=== PATIENT | female | born 1950 | race African-American/Black ===

== ENCOUNTER 2017-11-18 05:06 | Day surgery (SDC) | payer OTHER ==
[2017-11-16 12:38] VITALS: BMI 32.1
[~2017-11-18 05:06] MED LIST: TOBRAMYCIN/DEXAMETHASONE OPHTH. OINTMENT 1 TUBE TP ONE
[2017-11-18 06:20] VITALS: TEMP 98
[2017-11-18] MEDS: MOXIFLOXACIN HCL 0.5% OPHTHALMIC 3 ML BOTTLE ONE ×3 (06:45→07:14)
[2017-11-18] MEDS: DICLOFENAC SODIUM 0.1% OPHTHALMIC 2.5ML BOTTLE ONE ×3 (06:45→07:14)
[2017-11-18] MEDS: TROPICAMIDE 1% OPHTH SOLN 15 ML BOTTLE ONE ×3 (06:45→07:15)
[2017-11-18] MEDS: PHENYLEPHRINE 2.5% OPHTH SOLN 15 ML BOTTLE ONE ×3 (06:45→07:14)
[2017-11-18] MEDS ORDERED: CHONDROITIN SU A/HYALUR SOD 1 KIT ONE (07:11)
[2017-11-18] MEDS ORDERED: ACETAMINOPHEN 325 MG TABLET (FP) PO PRN (07:11)
[2017-11-18] MEDS ORDERED: LIDOCAINE HCL 2% JELLY (5 ML/TUBE) ONE (07:14)
[2017-11-18] MEDS ORDERED: PHENYLEPHRINE 2.5% OPHTH SOLN 15 ML BOTTLE OP SCH (07:15)
[2017-11-18] MEDS ORDERED: DICLOFENAC SODIUM 0.1% OPHTHALMIC 2.5ML BOTTLE OP SCH (07:15)
[2017-11-18] MEDS ORDERED: TROPICAMIDE 1% OPHTH SOLN 15 ML BOTTLE OP SCH (07:15)
[2017-11-18] MEDS ORDERED: MOXIFLOXACIN HCL 0.5% OPHTHALMIC 3 ML BOTTLE OS SCH (07:15)
[2017-11-18] MEDS ORDERED: TOBRAMYCIN/DEXAMETHASONE OPHTH. OINTMENT 1 TUBE ONE (07:16)
[2017-11-18] MEDS ORDERED: POVIDONE-IODINE 5% OPHTHALMIC PREP 30 ML SOLUTION ONE (07:17)
[2017-11-18] MEDS ORDERED: BSS (NA/CA/MG/K) BALANCED SALT SOLUTION OPHTH SOLN 15 ML BOTTLE ONE (07:17)
[2017-11-18] MEDS ORDERED: LIDOCAINE HCL/PF 1% SDV 5ML VIAL ONE (07:17)
--- NOTE | 2017-11-18 07:18 | HP ---
- Patient Scheduled date of Surgery: 11/18/17 Scheduled Surgical Procedure: Phacoemulsification and cataract extraction with PCIOL Affected Eye: Left Chief Complaint (Indication for surgery): Decreased vision affecting ADLs - Ocular History Other Eye History: POAG Eye Medications: alphagan p (2/2), vigamox (0/3), prolensa (0/1) Previous Eye Surgery: none - Medical History Illnesses: Hypertension, Hypercholesterolemia, Diabetes, Other (gerd. RA) Current Medications: Ambulatory Orders Amlodipine Besylate 5 mg PO DAILY 11/16/17 Ergocalciferol [Vitamin D2] 50,000 unit PO WEEKLY 11/16/17 Glimepiride [Amaryl -] 2 mg PO BID 11/16/17 Losartan/Hydrochlorothiazide [Losartan-Hctz 100-12.5 mg Tab] 1 each PO DAILY [place]-3 Fatty Acids [[place]-3] 1,000 mg PO DAILY 11/16/17 Rosuvastatin [Crestor -] 10 mg PO UTDICT 11/16/17 Sitagliptin Phosphate [Januvia -] 100 mg PO DAILY 11/16/17 Allergies/Adverse Reactions: Allergies Allergy/AdvReac Type Severity Reaction Status Date / Time tramadol Allergy Intermediate Itching Verified 11/18/17 06:28 Ocular Examination - Best Corrected Visual Acuity Distance: Right eye: 20/30 Distance: Left eye: 20/40 - External/Slit Lamp Examination Abnormalities: K pigment on endothelium - Intraocular Pressure Intraocular Pressure - Right eye: 18 Intraocular Pressure-Left eye: 20 - Lens Lens: 2+ NS 3+ cortical 1+ ASC pigment on lens capsule - Vitreous/Retina Vitreous/Retina: c:d 0.2 m/v/p wnl - Special Examination M - Right eye: +2.75-1.75 x 85 M - Left eye: +2.75-1.75 x 080 K - Right eye: 42.5/43.25 x 14 K - Left eye: 42.5/43.25 x 179 AL - Right eye: 23.22 AL - Left eye: 23.31 IOL bag: +22.0 AUOOTO IOL sulcus: +21.0 MN60AC IOL AC: +18.0 [id number] - Impression Impression: Cataract Left Eye - Plan Plan: Phacoemulsification and cataract extraction - IOL Left eye Post-hospital care will be provided in office on: 11/19/17
--- NOTE | 2017-11-18 07:27 | HP ---
History & Physical Update - History History: No Change - Physical Physical: No Change - Assessment Assessment: No Change - Plan Plan: No Change (Reviewd Dr. Earline Scott's H and P from 10/29/17 no changes)
[2017-11-18] MEDS ORDERED: MIDAZOLAM HCL 2 MG/2 ML SINGLE DOSE VIAL ONE (07:35)
[2017-11-18] MEDS ORDERED: LIDOCAINE HCL 2% JELLY (5 ML/TUBE) TP ONE (07:42)
[2017-11-18] MEDS ORDERED: POVIDONE-IODINE 5% OPHTHALMIC PREP 30 ML SOLUTION OS ONE (07:45)
[2017-11-18] MEDS ORDERED: LIDOCAINE HCL 1% PRESERVATIVE FREE - 30ML VIAL IO ONE (07:52)
[2017-11-18] MEDS ORDERED: CHONDROITIN SU A/HYALUR SOD 1 KIT IO ONE (07:52)
[2017-11-18] MEDS ORDERED: BSS (NA/CA/MG/K) BALANCED SALT SOLUTION OPHTH SOLN 15 ML BOTTLE OS ONE (07:52)
[2017-11-18] MEDS ORDERED: EPINEPHrine/PF 1 MG/1 ML (1:1,000) AMPULE SQ ONE (07:59)
[2017-11-18] MEDS ORDERED: TOBRAMYCIN/DEXAMETHASONE OPHTH. OINTMENT 1 TUBE TP ONE (08:14)
--- NOTE | 2017-11-18 08:31 | OP ---
Ophthalmology Operative Note Pre-Operative Diagnosis: Cataract Affected Eye: Left Operation: Phacoemulsification and cataract extraction with PCIOL Findings: NS Cataract left eye Post-Operative Diagnosis: Same as Pre-op Metal Stamping Machine Operator: None Anesthesia: Topical Specimens Removed: none Estimated blood loss: <1 cc Drains & Tubes with Location: none Operative Report Dictated: Yes
--- NOTE | 2017-11-18 09:11 | OP ---
DATE OF OPERATION: DATE OF DICTATION: 11/18/2017 PREOPERATIVE DIAGNOSIS: Nuclear sclerotic cataract, left eye. POSTOPERATIVE DIAGNOSIS: Nuclear sclerotic cataract, left eye. PROCEDURE: Phacoemulsification and cataract extraction with insertion of posterior chamber intraocular lens, left eye. SURGEON: Barbara Cobb MD CERAMIC CHEMIST: None. ANESTHESIA: Topical. ANESTHESIOLOGIST: Franc Mackey MD OPERATIVE PROCEDURE: The patient received 2% lidocaine gel and was gently sedated and prepped and draped in the usual sterile fashion so as to expose only the left eye. Ophthalmic Betadine was instilled into the inferior fornix. The lashes were taped out of the surgical field. An eyelid speculum was placed into the left eye. A paracentesis was made in inferior clear cornea at the limbus. Nonpreserved lidocaine 1%, 0.5 mL, was injected into the anterior chamber. Viscoelastic material was instilled into the anterior chamber via the paracentesis. A 2.4-mm keratome was then used to create the main incision in temporal clear cornea at the limbus. A continuous curvilinear capsulorrhexis was performed using a cystotome and Utrata forceps. Hydrodissection of the lens cortex was performed using BSS on a cannula until the nucleus was noted to be freely rotating. The phacoemulsification tip was inserted via the main wound and used to sculpt 2 perpendicular grooves into the lens nucleus. The nucleus was cracked into 4 quadrants. Each quadrant was lifted out of the capsule into the iris plane and individually phacoemulsified. The remaining cortical material was then aspirated using the irrigation and aspiration port. The capsular bag was inflated using Provisc and a preloaded AcrySof lens model [id number], power +22.0 diopters was injected into the capsular bag and centered using a Sinskey hook. The residual viscoelastic material was removed from the anterior chamber using irrigation and aspiration. The wound edges were hydrated. The wound was tested for leakage. It was found to be watertight. TobraDex ointment was placed in the eye and the speculum was removed from the eye and the eyelid was closed. A sterile dressing and shield were placed over the eye and the patient was transferred to the recovery room in stable condition. Told to follow up in 1 day. BARBARA COBB M.D. [id number]
[2017-11-18 09:30] VITALS: BP 136/78; PULSE 62
== END 2017-11-18 09:30 | disposition home or self-care (01) ==
LOC: JASU-SURG 05:06
PROVIDERS: ATTEND Ophthalmology
PROC: 08RK3JZ Replacement of Left Lens with Synthetic Substitute, Percutaneous Approach (ICD-10-PCS; principal; 2017-11-18 07:30)
DX: H25.12 Age-related nuclear cataract, left eye (principal)
CPT/HCPCS: 82962

== ENCOUNTER 2017-12-02 06:48 | Day surgery (SDC) | payer OTHER ==
[2017-12-01 16:21] VITALS: BMI 32.1
[2017-12-02] MEDS ORDERED: CHONDROITIN SU A/HYALUR SOD 1 KIT ONE (07:08)
[2017-12-02 07:16] VITALS: TEMP 97.8
[2017-12-02] MEDS ORDERED: BSS (NA/CA/MG/K) BALANCED SALT SOLUTION OPHTH SOLN 15 ML BOTTLE ONE (07:16)
[2017-12-02] MEDS ORDERED: PHENYLEPHRINE 2.5% OPHTH SOLN 15 ML BOTTLE ONE (07:23)
[2017-12-02] MEDS ORDERED: CIPROFLOXACIN HCL 0.3% OPHTH 2.5ML BOTTLE ONE (07:23)
[2017-12-02] MEDS ORDERED: TROPICAMIDE 1% OPHTH SOLN 15 ML BOTTLE ONE (07:24)
[2017-12-02] MEDS ORDERED: DICLOFENAC SODIUM 0.1% OPHTHALMIC 2.5ML BOTTLE ONE (07:24)
[2017-12-02] MEDS ORDERED: ACETAMINOPHEN 325 MG TABLET (FP) PO PRN (07:27)
--- NOTE | 2017-12-02 07:29 | HP ---
History & Physical Update - History History: No Change - Physical Physical: No Change - Assessment Assessment: No Change - Plan Plan: No Change (Dr. Rider's H and P reviewed from 11/16/17 no changes)
[2017-12-02] MEDS ORDERED: CIPROFLOXACIN HCL 0.3% OPHTH 2.5ML BOTTLE OP SCH (07:30)
[2017-12-02] MEDS ORDERED: PHENYLEPHRINE 2.5% OPHTH SOLN 15 ML BOTTLE OP SCH (07:30)
[2017-12-02] MEDS ORDERED: TROPICAMIDE 1% OPHTH SOLN 15 ML BOTTLE OP SCH (07:30)
[2017-12-02] MEDS ORDERED: KETOROLAC TROMETHAMINE 0.5% EYE DROP 1 DROP DROPS OP SCH (07:30)
[2017-12-02] MEDS ORDERED: MIDAZOLAM HCL 2 MG/2 ML SINGLE DOSE VIAL ONE (08:33)
--- NOTE | 2017-12-02 08:34 | HP ---
- Patient Scheduled date of Surgery: 12/02/17 Scheduled Surgical Procedure: Phacoemulsification and cataract extraction with PCIOL Affected Eye: Right Chief Complaint (Indication for surgery): Glare when driving at night - Ocular History Other Eye History: POAG Eye Medications: Alphagan p 2/2, vigamox 3/0, prolensa 1/0 Previous Eye Surgery: s/p ce/pciol OD - Medical History Illnesses: Hypertension, Diabetes, Other (arthritis) Current Medications: Ambulatory Orders Amlodipine Besylate 5 mg PO DAILY 11/16/17 Ergocalciferol [Vitamin D2] 50,000 unit PO WEEKLY 11/16/17 Glimepiride [Amaryl -] 2 mg PO BID 11/16/17 Losartan/Hydrochlorothiazide [Losartan-Hctz 100-12.5 mg Tab] 1 each PO DAILY [place]-3 Fatty Acids [[place]-3] 1,000 mg PO DAILY 11/16/17 Rosuvastatin [Crestor -] 10 mg PO UTDICT 11/16/17 Sitagliptin Phosphate [Januvia -] 100 mg PO DAILY 11/16/17 Allergies/Adverse Reactions: Allergies Allergy/AdvReac Type Severity Reaction Status Date / Time tramadol Allergy Intermediate Itching Verified 12/02/17 07:13 Ocular Examination - Best Corrected Visual Acuity Distance: Right eye: 20/60 glare Distance: Left eye: 20/20- - External/Slit Lamp Examination Abnormalities: K pigment on endothelium - Intraocular Pressure Intraocular Pressure - Right eye: 18 Intraocular Pressure-Left eye: 18 - Lens Lens: 2-3+ NS cortical changes , pigment on posterior lens capsule - Vitreous/Retina Vitreous/Retina: C:D 0.45 m/v/p wnl - Special Examination M - Right eye: +2.75-1.75 x 085 M - Left eye: plano -1.00 x 090 K - Right eye: 42.5/43 x 010 K - Left eye: 42.5/43 x 170 AL - Right eye: 23.22 IOL bag: +22.0 d Auooto IOL sulcus: +21.0 d MN60AC IOL AC: +18.0 MTA4uo - Impression Impression: Cataract Right Eye - Plan Plan: Phacoemulsification and cataract extraction - IOL Right eye Post-hospital care will be provided in office on: 12/03/17
[2017-12-02] MEDS ORDERED: LIDOCAINE HCL 2% JELLY (5 ML/TUBE) TP ONE (08:49)
[2017-12-02] MEDS ORDERED: POVIDONE-IODINE 5% OPHTHALMIC PREP 30 ML SOLUTION OD ONE (08:50)
[2017-12-02] MEDS ORDERED: BSS (NA/CA/MG/K) BALANCED SALT SOLUTION OPHTH SOLN 15 ML BOTTLE OD ONE (09:00)
[2017-12-02] MEDS ORDERED: LIDOCAINE HCL 1% PRESERVATIVE FREE - 30ML VIAL IO ONE (09:00)
[2017-12-02] MEDS ORDERED: CHONDROITIN SU A/HYALUR SOD 1 KIT IO ONE (09:00)
[2017-12-02] MEDS ORDERED: EPINEPHrine/PF 1 MG/1 ML (1:1,000) AMPULE SQ ONE (09:07)
[2017-12-02] MEDS ORDERED: TOBRAMYCIN/DEXAMETHASONE OPHTH. OINTMENT 1 TUBE TP ONE (09:26)
--- NOTE | 2017-12-02 09:29 | OP ---
Ophthalmology Operative Note Pre-Operative Diagnosis: Cataract Affected Eye: Right Operation: Phacoemulsification and cataract extraction with PCIOL Findings: NS Cataract right eye Post-Operative Diagnosis: Same as Pre-op Fresh Work Wrapper Layer: None Anesthesiologist: Franc Mackey Anesthesia: Topical Specimens Removed: none Estimated blood loss: <1 cc Drains & Tubes with Location: none Operative Report Dictated: Yes
--- NOTE | 2017-12-02 10:55 | OP ---
DATE OF OPERATION: DATE OF DICTATION: 12/02/2017 PREOPERATIVE DIAGNOSIS: Nuclear sclerotic cataract, right eye. POSTOPERATIVE DIAGNOSIS: Nuclear sclerotic cataract, right eye. PROCEDURE: Phacoemulsification and cataract extraction with insertion of posterior chamber intraocular lens, right eye. SURGEON: Barbara Cobb M.D. FIRE HOSE CURER: None. ANESTHESIA: Topical. ANESTHESIOLOGIST: Franc Mackey M.D. OPERATIVE PROCEDURE: The patient received lidocaine gel 2% and was then brought to the operating room and gently sedated and prepped and draped in the usual sterile fashion so as to expose only the right eye. Ophthalmic Betadine was instilled into the inferior fornix and the lashes were taped out of the surgical field. An eyelid speculum was placed into the right eye. A paracentesis was made in superior clear cornea at the limbus; 0.5 mL of non-preserved lidocaine 1% was injected into the anterior chamber. Viscoelastic material was instilled into the anterior chamber via the paracentesis. A 2.4 mm keratome was then used to create the main incision in temporal clear cornea at the limbus. A continuous curvilinear capsulorrhexis was performed using a cystotome and Utrata forceps. Hydrodissection of the lens cortex was performed using BSS on a cannula until the nucleus was noted to be freely rotating. The phacoemulsification tip was then inserted via the main wound and used to sculpt 2 perpendicular grooves into the lens nucleus. The nucleus was cracked into 4 quadrants. Each quadrant was lifted out of the capsule into the iris plane and individually phacoemulsified. The remaining cortical material was then aspirated using the irrigation and aspiration port. The capsular bag was inflated using Provisc and a preloaded AcroSof lens model [id number] power +22 diopters was injected into the capsular bag. It was centered using a Sinskey hook. The residual Viscoelastic material was removed from the anterior chamber using irrigation and aspiration. The wound edges were hydrated using BSS. The wound was tested for leakage, it was found to be water tight. Therefore, TobraDex ointment was placed in the eye and the speculum was removed from the eye and the eyelid was closed. A sterile dressing and shield were placed over the eye and the patient was transferred to the recovery room in stable condition, told to follow up in 1 day. BARBARA COBB M.D. [id number]
[2017-12-02 11:22] VITALS: BP 149/84; PULSE 62
== END 2017-12-02 10:45 | disposition home or self-care (01) ==
LOC: JASU-SURG 06:48
PROVIDERS: ATTEND Ophthalmology
PROC: 08RJ3JZ Replacement of Right Lens with Synthetic Substitute, Percutaneous Approach (ICD-10-PCS; principal; 2017-12-02 08:30)
DX: H25.11 Age-related nuclear cataract, right eye (principal)
CPT/HCPCS: 82962

== ENCOUNTER → 2020-12-31 | Day surgery (SDC) | payer OTHER | END | disposition home or self-care (01) | LOC: JRADIR 10:38 | PROVIDERS: ATTEND Internal Medicine Endocrinology, Diabetes & Metabolism | PROC: 0G9G3ZX Drainage of Left Thyroid Gland Lobe, Percutaneous Approach, Diagnostic (ICD-10-PCS; principal; 2020-12-31) | DX: E04.1 Nontoxic single thyroid nodule (principal) | CPT/HCPCS: 10005; 76942; 88173; 88305-TC ==